=== PATIENT | male | born 1950 | race Caucasian/White ===

== ENCOUNTER 2024-05-14 09:52 | Outpatient (CLI) | payer OTHER ==
[2024-05-14 10:24] LABS: BILIRUBIN,URINE NEGATIVE (Neg); CLARITY,URINE SLIGHTLY CLOUDY (Clear); COLOR,URINE YELLOW (Yellow); GLUCOSE, URINE 250 mg/dl (Neg); KETONES,URINE NEGATIVE (Neg); LEUKOCYTE ESTERASE ,URINE NEGATIVE (Neg); NITRITES, URINE NEGATIVE (Neg); OCCULT BLOOD,URINE SMALL (Neg); PROTEIN,URINE 100 mg/dl (Neg); UROBILINOGEN,URINE 0.2 E.U/dL (0.2-1.0)
[2024-05-14 10:39] LABS: ALANINE AMINOTRANSFERASE 23 U/L (12-78); ALBUMIN 3.5 G/DL (3.4-5.0); ALKALINE PHOSPHATASE 133 IU/L (46-116); ANION GAP 11 (8-16); ASPARTATE AMINO TRANSFERASE 17 U/L (10-37); BILIRUBIN,TOTAL 0.3 MG/DL (0.1-1.0); CALCIUM 9.1 MG/DL (8.5-10.1); CHLORIDE 103 MMOL/L (99-107); CREATININE 7.33 MG/DL (0.60-1.10); GLUCOSE 109 MG/DL (70-104); POTASSIUM 3.6 MMOL/L (3.5-5.1); SODIUM 142 MMOL/L (135-145); TOTAL CARBON DIOXIDE 28.1 MMOL/L (24-32); TOTAL PROTEIN 6.9 G/DL (6.4-8.2); eGFR 7 ML/MIN
[2024-05-14 10:41] LABS: BLOOD UREA NITROGEN 74 MG/DL (7-18); BUN/CREATININE RATIO 10.1 (10.0-20.0)
[2024-05-14 10:43] LABS: UA COLLECTION TYPE CLN CATCH MIDSTREAM
[2024-05-14 10:46] LABS: FINE GRANULAR CAST 0-3 /LPF (NEGATIVE)
[2024-05-14 10:47] LABS: BACTERIA,URINE FEW /HPF (Neg); RBC,URINE 0-2 /HPF (0-2); WBC,URINE 0-4 /HPF (0-4)
[2024-05-14 10:48] LABS: SQUAMOUS EPITHELIAL CELL,UR FEW /LPF (FEW)
== END 2024-05-14 23:59 | disposition home or self-care (01) ==
LOC: LAB 09:52
PROVIDERS: ATTEND Chiropractor
DX: N18.6 End stage renal disease (principal)
CPT/HCPCS: 36415; 80053; 81001